=== PATIENT | female | born 1975 | race Hispanic/Latino ===

== ENCOUNTER 2017-07-19 07:25 | Emergency (ER) | payer SELFPAY ==
[~2017-07-19] VITALS: Ht 162.6 cm; Wt 66.7 kg
[2017-07-19] MEDS ORDERED: IBUPROFEN 600 MG TAB PO STA (08:32)
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
[2017-07-19 08:42] LABS: CLARITY,URINE CLEAR (CLEAR); COLOR,URINE YELLOW (YELLOW); LEUKOCYTE ESTERASE ,URINE TRACE (NEGATIVE)
[2017-07-19 08:43] LABS: BILIRUBIN,URINE NEGATIVE (NEGATIVE); KETONES,URINE NEGATIVE (NEGATIVE); NITRITE,URINE NEGATIVE (NEGATIVE); PROTEIN,URINE DIPSTICK NEGATIVE (NEGATIVE); URINE UROBILINOGEN 0.2 mg/dL (0.2 - 1)
[2017-07-19] MEDS ORDERED: CYCLOBENZAPRINE HCL 10 MG TAB PO ONE (08:45)
[2017-07-19] MEDS ORDERED: HYDROCODONE/APAP 5MG-325MG TAB PO ONE (08:45)
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
[2017-07-19 09:51] VITALS: BP 153/99
[2017-07-19 10:05] LABS: EPITHELIAL CELLS,URINE RARE /LPF; WBC,URINE (MAN) 0-5 /HPF (0-5)
== END 2017-07-19 10:39 | disposition home or self-care (01) ==
LOC: ER 07:25
DX: M54.2 Cervicalgia (principal); M54.5 Low back pain; S16.1XXA Strain of muscle, fascia and tendon at neck level, initial encounter; S29.012A Strain of muscle and tendon of back wall of thorax, initial encounter; S33.5XXA Sprain of ligaments of lumbar spine, initial encounter; V49.88XA Car occupant (driver) (passenger) injured in other specified transport accidents, initial encounter; Y92.488 Other paved roadways as the place of occurrence of the external cause
CPT/HCPCS: 70450; 71045; 72125; 81001; 81025; 99284